=== PATIENT | male | born 1960 | race American Indian/Alaskan Native ===

== ENCOUNTER 2022-04-25 08:23 | Emergency (ER) | payer MEDICARE ==
[2022-04-25] MEDS ORDERED: KETOROLAC 30 MG/1 ML INJ IM ONE (12:27)
--- NOTE | 2022-04-25 13:06 | XRay Report ---
Left shoulder, 3 views HISTORY: Shoulder pain COMPARISON: None FINDINGS: Reverse left total shoulder arthroplasty with lucency surrounding the glenoid fixation screws, concer sussy for hardware loosening. Humeral stem appears unremarkable. No displaced hardware. Small corticat ed ossific densities project along the inferior glenoid. This may reflect heterotopic ossification/po stoperative or sequela of prior trauma. No acute fracture is detected. Signer Name: Isaias Kearney MD Signed: 04/25/2022 1:02 PM Workstation Name: [id number]
--- NOTE | 2022-04-25 13:45 | Emergency Department Report ---
Upper Extremity - HPI Chief Complaint: Extremity Injury, Upper Stated Complaint: LT SHOULDER PAIN Upper Extremity: Left Shoulder Occurred When: Today Mechanism: Fall Symptoms: Yes Pain with Movement, No Deformity, No Limited Range of Movement, No Numbness, No Weakness, No Swelling, No Bruising/Ecchymosis, No Laceration or Abrasion Other History: 61-year-old male presented ED with complaint of left shoulder pain after a fall. He states that he was taking a shower when his ceiling fell in causing him to fall on his left shoulder. Patient states that he had a prior injury to his left shoulder and had prior surgery done. Patient is able to move the shoulder with pain. No obvious deformity noted, no distracting injury noted no edema noted. Patient denies any LOC. ED Review of Systems ROS: Stated complaint: LT SHOULDER PAIN Other details as noted in HPI Constitutional: denies: chills, fever Eyes: denies: eye pain, eye discharge, vision change ENT: denies: ear pain, throat pain Respiratory: denies: cough, shortness of breath, wheezing Cardiovascular: denies: chest pain, palpitations Endocrine: no symptoms reported Gastrointestinal: denies: abdominal pain, nausea, diarrhea Genitourinary: denies: urgency, dysuria Musculoskeletal: denies: back pain, joint swelling, arthralgia Skin: denies: rash, lesions Neurological: denies: headache, weakness, paresthesias Psychiatric: denies: anxiety, depression Hematological/Lymphatic: denies: easy bleeding, easy bruising ED Past Medical Hx - Medications Home Medications: Home Medications Medication Instructions Recorded Confirmed Last Taken Type Acetaminophen/Codeine [Tylenol 1 tab PO Q6H PRN 3 Days #12 tab 04/25/22 Unknown Rx /Codeine # 3 tab] Upper Extremity Exam - Exam General: Vital signs noted. No distress. Alert and acting appropriately. Head and Torso: No HEENT Abnormality, No Neck Tenderness, No Chest/Lungs Abnormality, No Abdominal Tenderness, No Back Tenderness Shoulder Exam: Yes Normal Range of Motion in Shoulder, No Shoulder Tenderness, No Clavicle Tenderness, No Shoulder Deformity, No AC Joint Tenderness Arm Exam: No Arm/Humerus Tenderness, No Arm Deformity Elbow: No Elbow Tenderness, No Normal Range of Motion in Elbow, No Elbow Deformity Forearm: No Forearm Tenderness, No Forearm Deformity, No Pain with Pronation, No Pain with Supination Wrist: Yes Normal ROM in Wrist, No Wrist Tenderness, No Wrist Deformity, No Snuffbox Tenderness, No Pain with Axial Thumb Compression Hand: Yes Normal ROM in Digit(s), No Hand Tenderness, No Hand Deformity, No Digit Tenderness, No Digit(s) Deformity, No Tendon Dysfunction CMS Exam: No Broken Skin, No Normal Distal Pulses, No Normal Capillary Refill, No Normal Distal Sensation ED Course Vital Signs 04/25/22 08:26 Temperature 98 F Pulse Rate 73 Respiratory 14 Rate Blood Pressure 145/97 [Left] O2 Sat by Pulse 100 Oximetry ED Medical Decision Making - Medical Decision Making 61-year-old male presented ED with complaint of left shoulder pain after a fall. He states that he was taking a shower when his ceiling fell in causing him to fall on his left shoulder. Patient states that he had a prior injury to his left shoulder and had prior surgery done. Patient is able to move the shoulder with pain. No obvious deformity noted, no distracting injury noted no edema noted. Patient denies any LOC. X-ray left shoulder showed no fracture Rechecked the patient is resting quietly , comfortable and feeling better. I discussed the results of diagnostic study, my clinical impression and the plan for further treatment with the patient. Patient agrees with plan and discharge at this present time. All question addressed. I have given the patient instruction regarding a diagnosis ,expectation ,follow- up and return precaution. I explained to the patient that emergent condition may arise and to return to the ED for new worsen and any new persisting condition. I have explained the importance of following up with the primary care physician or referral physician listed below has instructed. The patient verbalized understanding of discharge instruction. Critical care attestation.: If time is entered above; I have spent that time in minutes in the direct care of this critically ill patient, excluding procedure time. ED Disposition Clinical Impression: Left shoulder pain Qualifiers: Chronicity: acute Qualified Code(s): M25.512 - Pain in left shoulder Disposition: 01 HOME / SELF CARE / HOMELESS Is pt being admited?: No Does the pt Need Aspirin: No Condition: Stable Instructions: Shoulder Pain, How to Use Cold Therapy, [id number], Musculoskeletal Pain Additional Instructions: Take medication as prescribed Return to ED for any worsening symptom Prescriptions: Acetaminophen/Codeine [Tylenol /Codeine # 3 tab] 1 tab PO Q6H PRN 3 Days #12 tab PRN Reason: Pain, Mild (1-3) Referrals: PRIMARY CAREMD [Primary Care Provider] - 3-5 Days [facility] [Provider Group] - 3-5 Days CAMERON DENTON MD [Staff Physician] - 3-5 Days Forms: Work/School Release Form(ED) Time of Disposition: 13:48
[2022-04-25 14:31] VITALS: BP 138/88
== END 2022-04-25 14:30 | disposition home or self-care (01) ==
LOC: ED 08:23
DX: M25.512 Pain in left shoulder (principal); W18.39XA Other fall on same level, initial encounter; Y93.89 Activity, other specified; Y92.89 Other specified places as the place of occurrence of the external cause; Y99.8 Other external cause status
CPT/HCPCS: 73030; 96372; 99283; J1885